=== PATIENT | female | born 1945 | race Caucasian/White ===

== ENCOUNTER 2018-01-19 17:31 | Inpatient (IN) | payer MEDICARE, OTHER ==
[~2018-01-19] VITALS: Ht 172.7 cm; Wt 85.0 kg
[~2018-01-19 17:31] MED LIST: ALBU18HF2 INH; AMIO200T57 PO; ASPI-1071 PO; CARV3.1289 PO; CLOP75TA33 PO; FOLI-62 PO; GUAI600T45 PO; INSU100V30 SQ; LISI2.5T2 PO; LORA0.5T PO; MOME17SP NS; MULT-1179 PO; NITR0.4T51 SL; OXAZ10CA PO; OXYC5CAP19 PO; PANT-47 PO; ROSU5TAB PO
[2018-01-19] MEDS ORDERED: nitroGLYCERIN 0.4mg SUBLingual tab SL PRN ×2 (17:45→20:50)
[2018-01-19 18:08] LABS: BASOPHILS % (AUTO) 0.2 % (0-1); EOSINOPHILS # (AUTO) 0.1 X10'3 (0-0.9); EOSINOPHILS % (AUTO) 1.5 % (0-6); HEMATOCRIT 31.7 % (35.0-45.0); HEMOGLOBIN 10.5 g/dl (12.0-16.0); LYMPHOCYTES % (AUTO) 23.9 % (21-51); MEAN CORPUSCULAR HEMOGLOBIN 30.7 PG (27.0-31.0); MEAN PLATELET VOLUME 8.7 FL (7.4-10.4); MONOCYTES # (AUTO) 0.6 X10'3 (0-0.9); MONOCYTES % (AUTO) 6.5 % (2-12); NEUTROPHILS # (AUTO) 5.8 X10'3 (1.8-7.7); NEUTROPHILS % (AUTO) 67.9 % (42-75); PLATELET COUNT 206 X10'3 (140-440); RED BLOOD COUNT 3.41 X10'6 (4.20-5.60); RED CELL DISTRIBUTION WIDTH 15.2 % (11.5-14.5); WHITE BLOOD COUNT 8.6 X10'3 (4.5-11.0)
[2018-01-19 18:19] LABS: D-DIMER 2.12 MG/L FEU (0-0.50)
[2018-01-19 18:24] LABS: ALANINE AMINOTRANSFERASE 37 U/L (12-78); ALBUMIN 2.8 G/DL (3.4-5.0); ALBUMIN/GLOBULIN RATIO 0.7 (1.1-1.5); ALKALINE PHOSPHATASE 75 IU/L (46-116); ANION GAP 11 (8-16); ASPARTATE AMINO TRANSFERASE 28 U/L (10-37); BILIRUBIN,TOTAL 0.4 MG/DL (0.1-1.0); BLOOD UREA NITROGEN 30 MG/DL (7-18); BUN/CREATININE RATIO 13.6 (6.6-38.0); CALCIUM 8.5 MG/DL (8.5-10.1); CHLORIDE 107 MMOL/L (99-107); GLUCOSE 132 MG/DL (70-104); POTASSIUM 4.5 MMOL/L (3.5-5.1); SODIUM 139 MMOL/L (135-145); TOTAL CARBON DIOXIDE 21.2 MMOL/L (24-32); TOTAL PROTEIN 6.9 G/DL (6.4-8.2); eGFR 22 ML/MIN
[2018-01-19 18:31] LABS: MAGNESIUM 2.1 MG/DL (1.5-2.4)
[2018-01-19] MEDS ORDERED: normal saline 1000ml 1,000 ML IV SCH (20:29)
[2018-01-19] MEDS ORDERED: bisacodyl 10mg suppository rectal RC PRN (20:30)
[2018-01-19] MEDS ORDERED: mag hydrox/Alum hydrox/simeth 30ml oral suspension PO PRN (20:30)
[2018-01-19] MEDS ORDERED: acetaminophen 325mg tablet PO PRN (20:30)
[2018-01-19] MEDS ORDERED: heparin 10,000 units/1 ML INJ IV ONE (20:45)
[2018-01-19] MEDS ORDERED: CANA300T PO (20:55)
[2018-01-19] MEDS ORDERED: LINA5TAB4 PO (20:55)
[2018-01-19] MEDS ORDERED: PIOG45TA19 PO (20:55)
[2018-01-19] MEDS ORDERED: ROSU5TAB PO (20:58)
[2018-01-19] MEDS ORDERED: DOCU-261 (20:58)
[2018-01-19] MEDS ORDERED: AMIO200T57 PO (20:58)
[2018-01-19] MEDS ORDERED: PYRI50TA10 PO (20:58)
[2018-01-19] MEDS ORDERED: GLIM1TAB46 PO (20:58)
[2018-01-20] MEDS ORDERED: glucagon, human recombinant 1mg kit SUBCUT PRN (00:20)
[2018-01-20] MEDS ORDERED: dextrose 50%-water 50ml dispensing syringe IV PRN ×2 (00:20)
[2018-01-20] MEDS ORDERED: dextrose ORAL solution 15 GM/59 ML bottle PO PRN ×2 (00:20)
[2018-01-20] MEDS ORDERED: MESSAGE TO PHARMACY PO ONE (00:20)
[2018-01-20] MEDS: CefTRIAXone/D5W-Rocephin 1gm 50 ML IV SCH ×2 (01:26→21:25)
[2018-01-20] MEDS: furosemide 20 MG/2 ML vial IV SCH ×2 (01:26→08:00)
[2018-01-20] MEDS ORDERED: losartan 50mg tablet PO ONE (01:40)
[2018-01-20 04:14] LABS: BASOPHILS % (AUTO) 0.1 % (0-1); EOSINOPHILS # (AUTO) 0.1 X10'3 (0-0.9); EOSINOPHILS % (AUTO) 1.3 % (0-6); HEMATOCRIT 31.6 % (35.0-45.0); HEMOGLOBIN 10.5 g/dl (12.0-16.0); LYMPHOCYTES # (AUTO) 1.8 X10'3 (1.1-4.8); MEAN CORPUSCULAR HEMOGLOBIN 30.8 PG (27.0-31.0); MEAN CORPUSCULAR HGB CONC 33.1 % (33.0-36.5); MEAN CORPUSCULAR VOLUME 92.9 FL (78-98); MEAN PLATELET VOLUME 8.9 FL (7.4-10.4); MONOCYTES # (AUTO) 0.5 X10'3 (0-0.9); MONOCYTES % (AUTO) 6.8 % (2-12); NEUTROPHILS # (AUTO) 5.2 X10'3 (1.8-7.7); NEUTROPHILS % (AUTO) 67.8 % (42-75); PLATELET COUNT 194 X10'3 (140-440); RED CELL DISTRIBUTION WIDTH 15.3 % (11.5-14.5); WHITE BLOOD COUNT 7.6 X10'3 (4.5-11.0)
[2018-01-20 04:19] LABS: PROTHROMBIN TIME 10.3 SECONDS (9.0-12.0)
[2018-01-20 04:23] LABS: ALANINE AMINOTRANSFERASE 34 U/L (12-78); ALBUMIN 2.7 G/DL (3.4-5.0); ALBUMIN/GLOBULIN RATIO 0.7 (1.1-1.5); ALKALINE PHOSPHATASE 71 IU/L (46-116); ANION GAP 10 (8-16); ASPARTATE AMINO TRANSFERASE 26 U/L (10-37); BILIRUBIN,TOTAL 0.3 MG/DL (0.1-1.0); BLOOD UREA NITROGEN 29 MG/DL (7-18); BUN/CREATININE RATIO 13.5 (6.6-38.0); CALCIUM 8.8 MG/DL (8.5-10.1); CHLORIDE 109 MMOL/L (99-107); CREATININE 2.15 MG/DL (0.40-0.90); GLUCOSE 89 MG/DL (70-104); POTASSIUM 4.4 MMOL/L (3.5-5.1); SODIUM 142 MMOL/L (135-145); TOTAL CARBON DIOXIDE 22.7 MMOL/L (24-32); TOTAL PROTEIN 6.7 G/DL (6.4-8.2); eGFR 23 ML/MIN
[2018-01-20 04:32] LABS: BILIRUBIN,DIRECT 0.1 MG/DL (0-0.3); MAGNESIUM 2.1 MG/DL (1.5-2.4); PHOSPHORUS 4.4 MG/DL (2.3-4.5)
[2018-01-20 04:51] LABS: HEMOGLOBIN A1C 6.8 % (4.5-6.2)
[2018-01-20 06:00] VITALS: BP 117/60
[2018-01-20] MEDS ORDERED: CARV3.122 PO (07:14)
[2018-01-20] MEDS: docusate sod 100mg capsule PO SCH ×2 (08:00→19:55)
[2018-01-20] MEDS: atorvastatin 20mg tablet PO SCH (08:00)
[2018-01-20] MEDS ORDERED: carVEDilol 3.125mg tablet PO SCH (08:00)
[2018-01-20] MEDS: amiodarone 200mg tablet PO SCH (08:01)
[2018-01-20] MEDS ORDERED: metoprolol tartrate 1mg/ml inj IV PRN (09:55)
[2018-01-20] MEDS ORDERED: CAFFEINE CITRATE 60 MG/3 ML injection vial IV PRN (09:55)
[2018-01-20] MEDS ORDERED: nitroGLYCERIN 0.4mg SUBLingual tab SL PRN (09:55)
[2018-01-20] MEDS ORDERED: regadenoson 0.4mg/5ml syringe IV ONE (09:55)
[2018-01-20] MEDS ORDERED: methylPREDNISolone sod succ 125mg/2ml vial IV ONE (10:50)
[2018-01-20] MEDS ORDERED: ipratropium/albuterol 3ml nebule NEB PRN (10:50)
[2018-01-20 11:00] VITALS: BP 98/71
[2018-01-20] MEDS ORDERED: potassium Cl 40MEQ/NS 500ml 500 ML IV PRN ×2 (11:00)
[2018-01-20] MEDS ORDERED: potassium Cl 20 mEq SR tablet PO PRN ×2 (11:00)
[2018-01-20] MEDS ORDERED: magnesium 4gm in 100ml NS 100 ML IV PRN (11:00)
[2018-01-20] MEDS ORDERED: magnesium/D5W IVPB 100 ML IV PRN (11:00)
[2018-01-20] MEDS ORDERED: magnesium Cl slow-release 64mg tablet PO PRN (11:00)
[2018-01-20] MEDS: azithromycin 250mg tablet PO SCH (11:02)
[2018-01-20 11:29] LABS: ALANINE AMINOTRANSFERASE 39 U/L (12-78); ALBUMIN 2.8 G/DL (3.4-5.0); ALBUMIN/GLOBULIN RATIO 0.6 (1.1-1.5); ALKALINE PHOSPHATASE 76 IU/L (46-116); ASPARTATE AMINO TRANSFERASE 29 U/L (10-37); BILIRUBIN,DIRECT 0.1 MG/DL (0-0.3); BILIRUBIN,TOTAL 0.2 MG/DL (0.1-1.0); TOTAL PROTEIN 7.2 G/DL (6.4-8.2)
[2018-01-20] MEDS: heparin 10,000 units/1 ML INJ IV PRN (11:42)
[2018-01-20] MEDS: methylPREDNISolone sod succ 125mg/2ml vial IV SCH ×2 (14:27→19:58)
[2018-01-20 15:00] VITALS: BP 101/54
[2018-01-20] MEDS: insulin Lispro (HumaLOG) vial - multi-dose SQ SCH ×2 (17:05→18:46)
[2018-01-20 19:00] VITALS: BP 112/62
[2018-01-20] MEDS: lactobacillus rhamnosus 10,000 MMU CELLS/CAPSULE PO SCH (19:55)
[2018-01-20] MEDS: carVEDilol 3.125mg tablet PO SCH (19:56)
[2018-01-20] MEDS: ipratropium/albuterol 3ml nebule NEB SCH (20:27)
[2018-01-20] MEDS ORDERED: insulin glargine (Lantus) pen - multi-dose SQ SCH (21:00)
[2018-01-20 23:00] VITALS: BP 134/55
[2018-01-21] VITALS (16 sets, daily range): BP systolic 84–113; BP diastolic 44–59
[2018-01-21 01:20] LABS: PROTHROMBIN TIME 10.1 SECONDS (9.0-12.0)
[2018-01-21 01:23] LABS: BASOPHILS % (AUTO) 0.3 % (0-1); EOSINOPHILS % (AUTO) 0.1 % (0-6); HEMATOCRIT 34.7 % (35.0-45.0); HEMOGLOBIN 11.2 g/dl (12.0-16.0); LYMPHOCYTES # (AUTO) 0.5 X10'3 (1.1-4.8); LYMPHOCYTES % (AUTO) 6.5 % (21-51); MEAN CORPUSCULAR HEMOGLOBIN 30.4 PG (27.0-31.0); MEAN CORPUSCULAR HGB CONC 32.2 % (33.0-36.5); MEAN CORPUSCULAR VOLUME 94.2 FL (78-98); MEAN PLATELET VOLUME 9.5 FL (7.4-10.4); MONOCYTES % (AUTO) 0.5 % (2-12); NEUTROPHILS # (AUTO) 7.7 X10'3 (1.8-7.7); NEUTROPHILS % (AUTO) 92.6 % (42-75); PLATELET COUNT 209 X10'3 (140-440); RED BLOOD COUNT 3.69 X10'6 (4.20-5.60); RED CELL DISTRIBUTION WIDTH 14.5 % (11.5-14.5); WHITE BLOOD COUNT 8.2 X10'3 (4.5-11.0)
[2018-01-21] MEDS: heparin 10,000 units/1 ML INJ IV PRN (01:35)
[2018-01-21] MEDS: methylPREDNISolone sod succ 125mg/2ml vial IV SCH ×2 (01:37→07:21)
[2018-01-21 01:48] LABS: % IRON SATURATION 9 % (11-46); IRON 34 UG/DL (49-151); TOTAL IRON BINDING CAPACITY 364 UG/DL (259-388)
[2018-01-21 01:53] LABS: FERRITIN 38 NG/ML (8-252)
[2018-01-21] MEDS: ipratropium/albuterol 3ml nebule NEB SCH (03:00)
[2018-01-21 05:03] LABS: ALANINE AMINOTRANSFERASE 37 U/L (12-78); ALBUMIN 2.9 G/DL (3.4-5.0); ALBUMIN/GLOBULIN RATIO 0.6 (1.1-1.5); ALKALINE PHOSPHATASE 76 IU/L (46-116); ANION GAP 16 (8-16); ASPARTATE AMINO TRANSFERASE 25 U/L (10-37); BILIRUBIN,TOTAL 0.2 MG/DL (0.1-1.0); BLOOD UREA NITROGEN 40 MG/DL (7-18); BUN/CREATININE RATIO 15.6 (6.6-38.0); CALCIUM 8.5 MG/DL (8.5-10.1); CHLORIDE 102 MMOL/L (99-107); CREATININE 2.56 MG/DL (0.40-0.90); GLUCOSE 318 MG/DL (70-104); MAGNESIUM 2.2 MG/DL (1.5-2.4); PHOSPHORUS 4.3 MG/DL (2.3-4.5); POTASSIUM 4.9 MMOL/L (3.5-5.1); SODIUM 138 MMOL/L (135-145); TOTAL CARBON DIOXIDE 20.3 MMOL/L (24-32); TOTAL PROTEIN 7.5 G/DL (6.4-8.2); eGFR 18 ML/MIN
[2018-01-21] MEDS: atorvastatin 20mg tablet PO SCH (07:05)
[2018-01-21] MEDS: lactobacillus rhamnosus 10,000 MMU CELLS/CAPSULE PO SCH (07:21)
[2018-01-21] MEDS: docusate sod 100mg capsule PO SCH (07:21)
[2018-01-21] MEDS: amiodarone 200mg tablet PO SCH (07:21)
[2018-01-21] MEDS: furosemide 20 MG/2 ML vial IV SCH (07:21)
[2018-01-21] MEDS: azithromycin 250mg tablet PO SCH (07:22)
[2018-01-21] MEDS: carVEDilol 3.125mg tablet PO SCH (07:22)
[2018-01-21] MEDS: insulin Lispro (HumaLOG) vial - multi-dose SQ SCH (07:37)
[2018-01-21] MEDS ORDERED: pyridoxine 50mg tablet PO SCH (08:00)
[2018-01-21] MEDS ORDERED: amiodarone 200mg tablet PO SCH (08:00)
[2018-01-21] MEDS ORDERED: atorvastatin 20mg tablet PO SCH (08:00)
[2018-01-21] MEDS ORDERED: regadenoson 0.4mg/5ml syringe IV ONE (08:18)
[2018-01-21] MEDS ORDERED: CAFFEINE CITRATE 60 MG/3 ML injection vial IV ONE (08:18)
[2018-01-21] MEDS ORDERED: aspirin 81mg tablet.DR PO SCH (08:30)
[2018-01-21] MEDS ORDERED: NITR0.4T51 SL (11:26)
[2018-01-21] MEDS ORDERED: AZI25OT PO (11:26)
[2018-01-21] MEDS ORDERED: PRED20TA PO (11:26)
[2018-01-21] MEDS ORDERED: LACT1CAP26 PO (11:26)
[2018-01-21] MEDS ORDERED: ASPI-1071 PO (11:26)
[2018-01-21] MEDS ORDERED: FURO-150 PO (11:40)
[2018-01-21] MEDS ORDERED: LISI-604 PO (11:40)
== END 2018-01-21 13:05 | disposition home or self-care (01) | DRG 280 ==
LOC: ER 17:32 → ED HOLD 20:29 → PCU 3S 22:00
PROVIDERS: ADMIT Emergency Medicine; ATTEND Family Medicine
PROC: 4A02XM4 Measurement of Cardiac Total Activity, External Approach (ICD-10-PCS; principal; 2018-01-21)
PROC: 3E073KZ Introduction of Other Diagnostic Substance into Coronary Artery, Percutaneous Approach (ICD-10-PCS; 2018-01-21)
DX: I21.A1 Myocardial infarction type 2 (principal); I50.23 Acute on chronic systolic (congestive) heart failure; J96.90 Respiratory failure, unspecified, unspecified whether with hypoxia or hypercapnia; N18.4 Chronic kidney disease, stage 4 (severe); J44.1 Chronic obstructive pulmonary disease with (acute) exacerbation; I13.0 Hypertensive heart and chronic kidney disease with heart failure and stage 1 through stage 4 chronic kidney disease, or unspecified chronic kidney disease; I47.1 Supraventricular tachycardia; I47.2 Ventricular tachycardia; N17.9 Acute kidney failure, unspecified; E11.22 Type 2 diabetes mellitus with diabetic chronic kidney disease; E11.21 Type 2 diabetes mellitus with diabetic nephropathy; E11.51 Type 2 diabetes mellitus with diabetic peripheral angiopathy without gangrene; E78.00 Pure hypercholesterolemia, unspecified; E78.5 Hyperlipidemia, unspecified; D64.9 Anemia, unspecified; F41.1 Generalized anxiety disorder; G89.29 Other chronic pain; I25.110 Atherosclerotic heart disease of native coronary artery with unstable angina pectoris; F17.210 Nicotine dependence, cigarettes, uncomplicated; I25.2 Old myocardial infarction; Z90.49 Acquired absence of other specified parts of digestive tract; Z88.1 Allergy status to other antibiotic agents; Z79.899 Other long term (current) drug therapy; Z79.4 Long term (current) use of insulin; Z79.82 Long term (current) use of aspirin; Z79.02 Long term (current) use of antithrombotics/antiplatelets; Z86.73 Personal history of transient ischemic attack (TIA), and cerebral infarction without residual deficits; Z82.3 Family history of stroke; Z82.49 Family history of ischemic heart disease and other diseases of the circulatory system; Z71.6 Tobacco abuse counseling
CPT/HCPCS: 36415; 71045; 78451; 80053; 80076; 82248; 82607; 82728; 82746; 82948; 83036; 83540; 83550; 83735; 83880; 84100; 84439; 84443; 84484; 85025; 85379; 85610; 85730; 87070; 93005; 93017; 93308; 94640; 94760; A9500; J0696; J1644; J1815; J1940; J2930; J7030